=== PATIENT | female | born 1970 | race African-American/Black ===

== ENCOUNTER 2018-06-20 10:13 | Emergency (ER) | payer MEDICAID ==
[~2018-06-20] VITALS: Ht 157.5 cm; Wt 78.5 kg
[2018-06-20 11:22] VITALS: BP 165/115
[2018-06-20] MEDS ORDERED: KETOROLAC TROMETH 60MG/2ML VIAL IM ONE (11:30)
== END 2018-06-20 14:08 | disposition home or self-care (01) ==
LOC: ER 10:13
DX: S83.91XA Sprain of unspecified site of right knee, initial encounter (principal); Z88.8 Allergy status to other drugs, medicaments and biological substances; Z90.710 Acquired absence of both cervix and uterus; X50.1XXA Overexertion from prolonged static or awkward postures, initial encounter; Y93.89 Activity, other specified; Y99.8 Other external cause status; Y92.89 Other specified places as the place of occurrence of the external cause
CPT/HCPCS: 73562; 96372; 99283; J1885

== ENCOUNTER 2018-06-20 17:36 | Emergency (ER) | payer MEDICAID ==
[~2018-06-20] VITALS: Ht 157.5 cm; Wt 78.5 kg
[2018-06-20 18:00] VITALS: BP 179/100
== END 2018-06-20 20:37 | disposition left against medical advice (07) ==
LOC: ER 17:40
DX: T78.40XA Allergy, unspecified, initial encounter (principal); X58.XXXA Exposure to other specified factors, initial encounter; Z53.21 Procedure and treatment not carried out due to patient leaving prior to being seen by health care provider

== ENCOUNTER 2018-12-01 08:47 | Emergency (ER) | payer MEDICAID ==
[~2018-12-01] VITALS: Ht 157.5 cm; Wt 80.7 kg
[2018-12-01] MEDS ORDERED: SODIUM CHLORIDE 0.9% 1,000 ML IVB ONE (09:52)
[2018-12-01] MEDS ORDERED: MORPHINE SULFATE 4 MG/ML SYR/VIAL IV ONE (10:00)
[2018-12-01] MEDS ORDERED: ONDANSETRON HCL 4 MG/2 ML VIAL IV ONE (10:00)
[2018-12-01 10:27] LABS: Urine Bacteria FEW /hpf (None Seen); Urine Blood TRACE /uL (Negative); Urine Mucus FEW (None Seen); Urine Specific Gravity 1.032 (1.001-1.035); Urine WBC 1 /hpf (0 - 5)
[2018-12-01 11:04] LABS: Basophils # (auto) 0 uL; Basophils % (auto) 0.2 % (0.0-2.0); Eosinophils # (auto) 0 uL; Eosinophils % (auto) 0.5 % (0.0-7.0); Hematocrit 40.2 % (36.0-46.0); Hemoglobin 13.2 g/dL (12.2-16.2); Lymphocytes # (auto) 0.8 uL; Lymphocytes % (auto) 16.5 % (10.0-50.0); Mean Corpuscular Hemoglobin 30.7 pg (28.0-32.0); Mean Corpuscular Hgb Conc. 32.8 g/dL (32.0-36.0); Mean Corpuscular Volume 93.6 fL (80.0-100.0); Monocytes # (auto) 0.3 uL; Neutrophils # (auto) 3.5 uL; Neutrophils % (auto) 76.8 % (37.0-80.0); Nucleated Red Blood Cells % 0.1 %; Platelet Count (auto) 279 10^3/uL (140-450); Red Blood Cells 4.29 10^6/uL (4.0-5.20); Red Cell Distribution Width 13.4 % (11.8-14.3); White Blood Cell 4.6 10^3/uL (4.4-10.8)
[2018-12-01 11:30] LABS: Albumin 3.8 g/dL (3.4-5.0); Calcium 8.9 mg/dL (8.5-10.1); Potassium 3.9 mmol/L (3.5-5.1)
[2018-12-01 11:34] LABS: BUN/Creatinine Ratio 15.6; Bilirubin, Total 0.6 mg/dL (0.2-1.0); Total Protein 8.5 g/dL (6.4-8.2)
[2018-12-01 11:38] VITALS: BP 170/82
[2018-12-01 12:15] LABS: Magnesium 2.2 mg/dL (1.6-2.6)
== END 2018-12-01 12:34 | disposition home or self-care (01) ==
LOC: ER 08:52
DX: R10.84 Generalized abdominal pain (principal); R11.2 Nausea with vomiting, unspecified; F17.210 Nicotine dependence, cigarettes, uncomplicated; I10 Essential (primary) hypertension; Z90.710 Acquired absence of both cervix and uterus; Z88.6 Allergy status to analgesic agent
CPT/HCPCS: 36415; 74176; 80053; 81001; 83690; 83735; 85025; 94761; 96361; 96374; 96375; 99284; J2270; J2405; J7030